=== PATIENT | male | born 1990 | race Caucasian/White ===

== ENCOUNTER 2017-02-21 06:26 | Emergency (ER) | payer OTHER ==
[~2017-02-21] VITALS: Ht 175.3 cm; Wt 65.9 kg
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
[2017-02-21 06:38] VITALS: BP 134/65; PULSE 89; RESP 12; O2SAT 98
[2017-02-21] MEDS ORDERED: Ondansetron 2 mg/mL 2 mL Inj IVPUSH PRN (07:10)
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
[2017-02-21 08:18] LABS: BASOPHILS % (AUTO) 0.4 % (0-3); EOSINOPHILS % (AUTO) 1.3 % (0-5); MONOCYTES % (AUTO) 7.4 % (4-12); Mean Corpuscular Hemoglobin 33.6 pg (27.0-35.0); Mean Corpuscular Volume 94.1 fL (81-100); Platelet Count 289 bil/L (150-400)
[2017-02-21 08:35] VITALS: BP 129/83; PULSE 82; RESP 12; O2SAT 98
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
[2017-02-21 09:03] VITALS: BP_SYST 108; BP_SYST 145; BP_DIAS 81; BP_DIAS 91; PULSE 91; RESP 20; RESP 21; O2SAT 98
[2017-02-21] MEDS ORDERED: IBUP-1827 PO (09:29)
== END 2017-02-21 09:41 ==
LOC: SED 06:26
DX: S06.0X0A Concussion without loss of consciousness, initial encounter (principal); S16.1XXA Strain of muscle, fascia and tendon at neck level, initial encounter; S00.81XA Abrasion of other part of head, initial encounter; S60.512A Abrasion of left hand, initial encounter; V48.5XXA Car driver injured in noncollision transport accident in traffic accident, initial encounter; Y93.89 Activity, other specified; Y92.410 Unspecified street and highway as the place of occurrence of the external cause; Y99.8 Other external cause status; Z88.0 Allergy status to penicillin
CPT/HCPCS: 36415; 70450; 71010; 72125; 80053; 83690; 85025; 86850; 99285; G0480